=== PATIENT | male | born 1995 | race Caucasian/White ===

== ENCOUNTER 2019-02-08 16:31 | Emergency (ER) | payer OTHER ==
[~2019-02-08] VITALS: Ht 167.6 cm; Wt 68.2 kg
--- NOTE | 2019-02-08 16:35 | NUR ---
"I PASSED OUT AT WORK. IT WAS REALLY HOT WHERE I WORK. I WENT DOWN 2 WKS AGO FOR THE SAME THING". ONE BOUT EMESIS. SHAKING UNCONTROLLABLY. MONITORS APPLIED. EKG DONE. PT RESTING ON GURNEY.
--- NOTE | 2019-02-08 17:25 | NUR ---
PT RESTING ON GURNEY. SHAKING LESS THAN PREVIOUS. ERP DR. KAISER AT BEDSIDE.
[2019-02-08] MEDS ORDERED: LORazepam 2 MG/ML, 1ML ONE (17:30)
[2019-02-08] MEDS ORDERED: SODIUM CHLORIDE 0.9% 1,000ML IVBOLUS ONE (17:30)
[2019-02-08] MEDS ORDERED: LORazepam 2 MG/ML, 1ML IVPush ONE (17:30)
[2019-02-08 17:40] LABS: BASOPHILS # (AUTO) 0.03 x10^3/uL (0-0.1); BASOPHILS % (AUTO) 1 % (0-1); EOSINOPHILS % (AUTO) 0 % (1-7); LYMPHOCYTES # (AUTO) 0.58 x10^3/uL (1-3.4); LYMPHOCYTES % (AUTO) 10 % (22-44); MD NO; MEAN CORPUSCULAR HEMOGLOBIN 33.6 pg (27.5-34.5); MEAN CORPUSCULAR HGB CONC 34.3 g/dL (33.2-36.2); MEAN CORPUSCULAR VOLUME 97.9 fL (81-97); MEAN PLATELET VOLUME 7.2 fL (7.4-10.4); MONOCYTES # (AUTO) 0.55 x10^3/uL (0.2-0.8); MONOCYTES % (AUTO) 10 % (2-9); NEUTROPHILS # (AUTO) 4.52 x10^3/uL (1.8-6.8); NEUTROPHILS % (AUTO) 80 % (42-75); PLATELET COUNT 254 x10^3/uL (130-400); RED BLOOD COUNT 4.62 x10^6/uL (4.38-5.82); RED CELL DISTRIBUTION WIDTH 13.9 % (9.4-14.8)
[2019-02-08 17:53] LABS: ALANINE AMINOTRANSFERASE 135 U/L (12-78); ALBUMIN 4.5 g/dL (3.4-5.0); ANION GAP 12 mmol/L (5-15); CALCIUM 9.3 mg/dL (8.5-10.1); CHLORIDE 103 mmol/L (98-107); CREATININE 0.89 mg/dL (0.7-1.3)
[2019-02-08 17:56] LABS: ALKALINE PHOSPHATASE 84 U/L (45-117); BILIRUBIN,TOTAL 0.5 mg/dL (0.2-1.0); CREATINE KINASE, TOTAL 201 U/L (39-308); TOTAL PROTEIN 8.4 g/dL (6.4-8.2)
[2019-02-08 18:09] LABS: MICROSCOPIC AUTO
[2019-02-08 18:11] LABS: CULTURE INDICATED? NO
--- NOTE | 2019-02-08 18:12 | NUR ---
PT STATES HE FEELS MUCH IMPROVED. PT RESTING ON GURNEY. NADN. CAO.
[2019-02-08 18:19] LABS: AMPHETAMINE SCREEN, URINE Negative (Negative); BARBITURATE SCREEN, URINE Negative (Negative); BENZODIAZEPINE SCREEN, URINE Negative (Negative); CANNABINOID SCREEN, URINE Negative (Negative); COCAINE SCREEN, URINE Negative (Negative); METHADONE SCREEN, URINE Negative (Negative); OPIATE SCREEN, URINE Negative (Negative)
--- NOTE | 2019-02-08 18:28 | NUR ---
PT CHART REVIEWED AND PLACED FOR RECHECK
[2019-02-08 18:49] VITALS: BP 126/95
--- NOTE | 2019-02-08 18:55 | NUR ---
REPORT GIVEN TO ROBERTA BERRY RN.
--- NOTE | 2019-02-08 18:56 | NUR ---
REPORT RECEIVED FROM LEISA ELLISON.
--- NOTE | 2019-02-08 19:10 | NUR ---
PT PROVIDED WATER NOW. PT'S AOX4. RESPS EVEN AND UNLABORED.
--- NOTE | 2019-02-08 19:35 | NUR ---
PT GIVEN DC INSTRUCTIONS. PT'S AOX4. RESPS EVEN AND UNLABORED. PT AMB TO DC WITH STEADY GAIT. NO ACUTE DISTRESS AT DC.
== END 2019-02-08 19:36 | disposition home or self-care (01) ==
LOC: ED 19:30
DX: T67.3XXA Heat exhaustion, anhydrotic, initial encounter (principal)
CPT/HCPCS: 36415; 80053; 80307; 81001; 82550; 83735; 85025; 93005; 96361; 96374; 99284; J2060; J7030